=== PATIENT | male | born 1980 | race Caucasian/White ===

== ENCOUNTER 2025-02-01 12:28 | Emergency (ER) | payer BC ==
[2025-02-01 12:36] VITALS: BP 114/75; PULSE 55; RESP 18; TEMP 97.8; BMI 27.4
[2025-02-01 12:51] LABS: ABSOLUTE IMMATURE GRANULOCYTES 0.01 x10^3/uL (0.0-0.031); BASOPHILS # 0.06 x10^3/uL (0.01-0.08); EOSINOPHIL % 2.1 % (0.8-7.0); EOSINOPHILS # 0.17 x10^3/uL (0.04-0.54); HEMATOCRIT 49.1 % (40.1-51.0); HEMOGLOBIN 15.8 g/dL (13.7-17.5); MCHC 32.2 g/dl (32.3-36.5); MEAN CELL VOLUME 78.9 fl (79.0-92.2); MEAN PLT VOLUME 9.1 fl (9.4-12.4); MONOCYTE # 0.75 x10^3/uL (0.30-0.82); MONOCYTE % 9.3 % (5.3-12.2); PLATELET COUNT 277 x10^3/uL (163-337); RDW 13.8 % (12.1-15.9)
[2025-02-01 12:58] LABS: INR 1.02 (0.83-1.09); PROTHROMBIN TIME (PATIENT) 11.2 SEC (9.7-13.0)
[2025-02-01 13:01] LABS: ACTIVATED PTT 28.7 SECONDS (25.2-36.5)
[2025-02-01 13:10] LABS: CHLORIDE 106 mmol/L (98-107); POTASSIUM 4.7 mmol/L (3.5-5.1); SODIUM 142 mmol/L (136-145)
[2025-02-01 13:15] LABS: ANION GAP 7 mmol/L (4-13); CO2 29 mmol/L (21-32); GLUCOSE,RANDOM 106 mg/dL (74-106)
[2025-02-01 13:17] LABS: SGPT/ALT 33 U/L (13-61)
[2025-02-01 13:18] LABS: CREATININE 1.4 mg/dL (0.55-1.3); SGOT/AST 15 U/L (15-37)
[2025-02-01 13:19] LABS: BILIRUBIN,TOTAL 0.5 mg/dL (0.2-1); CHOLESTEROL 209 mg/dL (50-200); LDL CHOLESTEROL (ONLY SJRH) 167 mg/dL (5-100); TOT PROT 6.8 g/dl (6.4-8.2)
[2025-02-01 13:20] LABS: ALK PHOS 83 U/L (45-117); HDL CHOLESTEROL 48 mg/dL (40-60)
[2025-02-01] MEDS: SODIUM CHLORIDE 1,000 ML IV SCH (13:38)
[2025-02-01 14:09] LABS: HIV INTERPRETATION NEGATIVE (NEGATIVE)
[2025-02-01 14:10] LABS: HCV DIAGNOSTIC IN-HOUSE W/RFLX NON-REACTIVE (NONREACTIVE)
[2025-02-01 15:22] LABS: URINE APPEARANCE TURBID; URINE BILIRUBIN NEGATIVE (NEGATIVE); URINE COLOR YELLOW; URINE GLUCOSE (UA) NEGATIVE (NEGATIVE); URINE KETONE NEGATIVE (NEGATIVE); URINE LEUK ESTERASE NEGATIVE (NEGATIVE); URINE NITRITE NEGATIVE (NEGATIVE); URINE PROTEIN NEGATIVE (NEGATIVE); URINE UROBILINOGEN 0.2 mg/dL (0.2-1.0)
[2025-02-01 15:23] LABS: COCAINE, UR NEGATIVE (NEGATIVE); URINE BENZODIAZEPINES NEGATIVE (NEGATIVE)
[2025-02-01 15:24] LABS: METHADONE, UR NEGATIVE (NEGATIVE); OPIATES, URI NEGATIVE (NEGATIVE); PHENCYCLIDINE,URINE NEGATIVE (NEGATIVE)
[2025-02-01 15:25] LABS: URINE BARBITURATES NEGATIVE (NEGATIVE)
[2025-02-01] MEDS ORDERED: ASPIRIN 325 MG TABLET ONE (15:27)
[2025-02-01 15:28] LABS: URINE AMPHETAMINES NEGATIVE (NEGATIVE)
[2025-02-01] MEDS: ASPIRIN 325 MG TABLET PO ONE (15:37)
== END 2025-02-01 15:59 | disposition short-term general hospital (02) ==
LOC: JER 12:28
DX: I63.9 Cerebral infarction, unspecified (principal); R20.0 Anesthesia of skin; R20.2 Paresthesia of skin; R47.81 Slurred speech; R47.1 Dysarthria and anarthria
CPT/HCPCS: 36415; 70450-TC; 70496-TC; 70498-TC; 71045-TC-FY; 80053; 80061; 80307; 81003; 82550; 82553; 82962; 84484; 85025; 85610; 85730; 86803; 86850; 86900; 86901; 87389; 93005; 93010; 99291